=== PATIENT | male | born 1965 | race African-American/Black ===

== ENCOUNTER → 2017-05-06 | Outpatient (CLI) | payer OTHER ==
[2015-06-08 23:39] VITALS: BP 142/85
--- NOTE | 2017-05-06 15:04 | RAD ---
Bilateral knees, 6 views, 05/06/2017: History: Left knee tenderness The knee joint spaces are well preserved. No fracture or dislocation is identified. No significant joint effusion is seen. IMPRESSION: No acute bony abnormality is detected.
== END | disposition home or self-care (01) ==
LOC: RAD 13:57
PROVIDERS: ATTEND Family Medicine
DX: D17.79 Benign lipomatous neoplasm of other sites (principal); M25.562 Pain in left knee
CPT/HCPCS: 73562

== ENCOUNTER → 2017-05-14 | Outpatient (CLI) | payer OTHER ==
[2015-06-08 23:39] VITALS: BP 142/85
--- NOTE | 2017-05-15 06:21 | RAD ---
EXAM: MRI RIGHT KNEE WITHOUT CONTRAST. HISTORY: Right knee pain. TECHNIQUE: MRI of the right knee was performed without intravenous contrast. COMPARISON: None. FINDINGS: The anterior cruciate ligament and posterior cruciate ligament are intact. The medial collateral ligament and lateral collateral ligament complex are intact. There is T2 hyperintensity and mild thickening of the proximal half of the patellar tendon without a clear tear. There is mild surrounding edema. There is also mild marrow edema at the inferior pole of the patella. There is a small free edge tear of the body of the lateral meniscus. The medial meniscus appears intact. There is partial thickness cartilage loss along the lateral patellar facet. There is no joint effusion. IMPRESSION: 1. Moderate proximal patellar tendinopathy is mild marrow edema in the inferior pole of the patella and surrounding edema. Correlate for tendinitis or low-grade strain. 2. Small free edge tear of the body of the lateral meniscus. 3. Mild partial thickness cartilage loss along the lateral patellar facet. Electronically signed by: Tommy Mariscal MD (05/15/2017 6:17 AM) [id number]
--- NOTE | 2017-05-15 06:25 | RAD ---
EXAM: MRI LEFT KNEE WITHOUT CONTRAST. HISTORY: Left knee pain. TECHNIQUE: MRI of the left knee was performed without intravenous contrast. COMPARISON: None. FINDINGS: The anterior cruciate ligament and posterior cruciate ligament are intact. The medial collateral ligament and lateral collateral ligament complex are intact. The patellar retinacula and extensor mechanism are intact. A small longitudinal/parrot-beak tear of the junction of the posterior horn/body of the medial meniscus is suspected versus artifact. See series 9 image 8 and series 7 image 21. The lateral meniscus is intact. There is partial thickness cartilage fissure along the lateral patellar facet. The medial lateral compartmental cartilage appears intact. There is a trace joint effusion. There are subcutaneous varicosities superior to the patella. IMPRESSION: 1. Suspect a small longitudinal/parrot-beak tear of the junction of the posterior horn and body of the medial meniscus. Correlate with symptoms to differentiate from an artifact. 2. Partial thickness cartilage fissure along the lateral patellar facet. 3. Trace joint effusion. Electronically signed by: Tommy Mariscal MD (05/15/2017 6:22 AM) [id number]
== END | disposition home or self-care (01) ==
LOC: MRI 14:34
PROVIDERS: ATTEND Family Medicine
DX: S83.281A Other tear of lateral meniscus, current injury, right knee, initial encounter (principal); M25.462 Effusion, left knee; I86.8 Varicose veins of other specified sites; X58.XXXA Exposure to other specified factors, initial encounter; Y93.89 Activity, other specified; Y92.89 Other specified places as the place of occurrence of the external cause; Y99.8 Other external cause status
CPT/HCPCS: 73721